=== PATIENT | male | born 1940 | race Caucasian/White ===

== ENCOUNTER 2020-06-11 00:19 | Emergency (ER) | payer MEDICARE, OTHER, SELFPAY ==
[2020-06-11 00:33] VITALS: BP 150/89; PULSE 48; RESP 18; TEMP 35.6; O2SAT 96; BMI 29.9
--- NOTE | 2020-06-11 00:46 | CTR_ITS ---
PROCEDURE INFORMATION: Exam: CT Abdomen And Pelvis With Contrast Exam date and time: 06/11/2020 1:03 AM Age: 80 years old Clinical indication: Abdominal pain; Flank; Right; Additional info: Abd pain TECHNIQUE: Imaging protocol: Computed tomography of the abdomen and pelvis with intravenous contrast. Radiation optimization: All CT scans at this facility use at least one of these dose optimization techniques: automated exposure control; mA and/or kV adjustment per patient size (includes targeted exams where dose is matched to clinical indication); or iterative reconstruction. Contrast material: VISI; Contrast volume: 95 ml; Contrast route: INTRAVENOUS (IV); COMPARISON: No relevant prior studies available. RADIATION DOSE METRICS: Total DLP (mGy-cm): 1449.46 FINDINGS: Liver: There is mild hypoattenuation of the hepatic parenchyma compatible with fatty infiltration. Gallbladder and bile ducts: Normal. No calcified stones. No ductal dilation. Pancreas: Normal. No ductal dilation. Spleen: Normal. No splenomegaly. Adrenals: Normal. No mass. Kidneys and ureters: There are bilateral benign appearing renal cysts, the largest is seen in the upper pole of the right kidney measuring 1.8 cm. Strandy opacities are seen in the right perinephric fascia the compatible with mild inflammatory changes. There is mild hydronephrosis seen within the right kidney and a partially obstructing 2.2 mm calculus is seen at the level of the right ureteropelvic junction. Stomach and bowel: Diverticula are seen on the descending and sigmoid colon. There are no inflammatory changes seen to suggest diverticulitis. Appendix: The appendix is visualized and is normal in configuration. Intraperitoneal space: Unremarkable. No free air. No significant fluid collection. Vasculature: Unremarkable. No abdominal aortic aneurysm. Lymph nodes: Unremarkable. No enlarged lymph nodes. Bladder: Unremarkable as visualized. Reproductive: The prostate gland is prominent measuring 4.7 x 5.7 x 5.8 cm. Bones/joints: Unremarkable. No acute fracture. Soft tissues: Unremarkable. CT/CT abdomen pelvis w con* [id number] IMPRESSION: 1. Partially obstructing 2.2 mm calculus at the level of the right ureteropelvic junction. 2. Diverticulosis of the descending and sigmoid colon 3. Bilateral benign renal cysts, the largest seen on the right upper pole measuring 1.8 cm. No further workup needed. COMMENTS: Consistent with the [employer]'s Incidental Findings Committee white paper (J Am Hebert Radiol 2018): Any incidental renal lesion less than 1 cm or classified as too small to characterize, or any incidental cystic renal lesion characterized as simple-appearing, is likely benign. No follow-up imaging is recommended for these lesions per consensus recommendations based on imaging criteria. Radiation Dose CTDIVOL = (mGy): DLP = 1449.46 (mGy-cm)
--- NOTE | 2020-06-11 00:47 | ED_ITS ---
HPI - Back Pain/Injury General: Chief Complaint: Back Pain/Injury Stated Complaint: lower back pain/vomiting Time Seen by Provider: 06/11/20 00:30 Source: patient Mode of arrival: ambulatory Limitations: no limitations History of Present Illness: HPI Narrative: 80-year-old male who states he started having severe right-sided flank pain and abdominal pain at 730. He states the pain is been steady. He has had nausea and vomiting due to the pain. Denies any fevers. He has no history of kidney stones. Denies any difficulty urinating. Associated symptoms: Reports abdominal pain, nausea and vomiting; Deny chills, dysuria or fever(s) Review of Systems Const: Denies: fever(s), chills, body aches or change in appetite Eyes: Denies: blurry vision or eye discomfort ENMT: Denies: throat pain or dental pain Card: Denies: chest pain Resp: Denies: dyspnea GI: Reports: abdominal pain, nausea and vomiting : Denies: dysuria Musc: Denies: neck pain or back pain Skin/Breast: Denies: rash Neuro: Denies: headache(s) Psych: Denies: depression Jimi/Lymph: Denies: easy bruising All/Imm: Denies: urticaria Physical Exam Const: COMMON NORMALS: no acute distress, patient oriented x3 and healthy appearing HENMT: COMMON NORMALS: normocephalic and atraumatic HEAD & SCALP: normocephalic and atraumatic Eye: COMMON NORMALS: Equal, round and reactive pupils present and EOMs intact bilaterally PUPIL: Yes Equal, round and reactive pupils present Neck/C-Spine: COMMON NORMALS: full ROM and supple Chest: COMMONS NORMALS: normal inspection of the chest and normal palpation of entire chest wall Resp: COMMON NORMALS: normal respiratory effort, No retractions, No use of accessory muscles and clear to auscultation bilaterally AUSCULTATION: clear to auscultation bilaterally Cardio: COMMON NORMALS: regular rate, regular rhythm and No murmurs present (Cardio) RATE: regular rate RHYTHM: regular rhythm GI: COMMON NORMALS: Normal to inspection, nondistended, normoactive bowel sounds present, Soft to palpation, non-tender and no masses PALPATION: Yes Soft to palpation Extremity: COMMON NORMALS: normal to inspection and full ROM Neuro: COMMON NORMALS: patient oriented x3, moves all extremities and no focal motor deficits Psych: COMMON NORMALS: mental status grossly normal, Normal thought process present and cooperative THOUGHT PROCESS: Normal thought process present Skin: COMMON NORMALS: no rashes or lesions noted and no wounds GENERAL SKIN EXAM: no rashes or lesions noted Course Vital Signs: Vital signs: Vital Signs Temperature 96.1 F L 06/11/20 00:33 Pulse Rate 48 L 06/11/20 00:33 Respiratory Rate 16 06/11/20 00:54 Blood Pressure 150/89 06/11/20 00:33 Pulse Oximetry 96 06/11/20 00:33 MDM - Back Pain/Injury MDM Narrative: Medical decision making narrative: Patient presents here with flank pain and is found to have a kidney stone. Stone is 2 mm and should be able to pass. We will place him on Flomax along with pain meds. He is stable for discharge and is to follow-up with urology. Patient has no signs of infection. He is to return if worsening. Lab Data: Labs: Lab Results 06/11/20 06/11/20 06/11/20 Range/Units 00:42 00:42 01:27 WBC 13.9 H (4.0-10.0) 10^3/ uL RBC 5.35 H (4.1-5.3) 10^6/u L Hgb 15.4 (11.7-16.6) g/dL Hct 47.0 (42.0-52.0) % MCV 87.9 (80-94) fL MCH 28.8 (28.0-34.0) pg MCHC 32.8 (30.0-36.0) g/dL RDW 13.1 (12.1-15.1) % Plt Count 264 (130-400) 10^3/c mm MPV 9.9 (7.4-10.4) fL Neut % (Auto) 87.1 % Lymph % (Auto) 6.5 % [place] % (Auto) 4.9 % Eos % (Auto) 0.2 % Baso % (Auto) 0.4 % Neut # (Auto) 12.10 H (1.8-7.7) 10^3/u L Lymph # (Auto) 0.9 (0.8-4.8) 10^3/u L [place] # (Auto) 0.7 (0.2-0.9) 10^3/u L Eos # (Auto) 0.0 (0.0-0.8) 10^3/u L Baso # (Auto) 0.1 (0.0-0.1) 10^3/u L Nucleated RBC % (a uto) 0 % Nucleated RBCs # 0.0 /100WBC Sodium 140 (136-145) mmol/L Potassium 4.1 (3.5-5.1) mmol/L Chloride 103 (98-107) mmol/L Carbon Dioxide 25 (22-29) mmol/L Anion Gap 16.1 (5-19) BUN 21 (8-23) mg/dL Creatinine 1.3 H (0.7-1.2) mg/dL GFR Calculation Not Reportable Glucose 220 H (65-115) mg/dL Calculated Osmolal ity 300 H (285-295) mOsm/k g Calcium 9.1 (8.5-10.5) mg/dL Total Bilirubin 0.7 (0.15-1.2) mg/dL AST 23 (0-40) U/L ALT 31 (0-41) U/L Alkaline Phosphata se 83 (40-130) IU/L Total Protein 7.7 (6.6-8.7) g/dL Albumin 4.4 (3.5-5.2) g/dL Globulin 3.3 (1.3-4.6) g/dL Lipase 46 (13-60) U/L Urine Color Yellow (Yellow) Urine Appearance Clear (CLEAR) Urine pH 5 (5-7) Ur Specific Gravit y 1.020 (1.005-1.030) Urine Protein Neg (Negative) Urine Glucose (UA) Norm (Normal) Urine Ketones 1+ H (Negative) Urine Blood 3+ H (Negative) Urine Nitrate Negative (Negative) Urine Bilirubin Neg (Negative) Urine Urobilinogen Norm (Negative) mg/dL Ur Leukocyte Tash ase Negative (Negative) Urine RBC 25-40 H (0-2) /hpf Urine WBC 0-4 H (0-5) /hpf Ur Squamous Epith Cells 0-4 H (0-5) /hpf Amorphous Sediment Not Reportable Urine Bacteria Trace (NONE) /hpf Urine Yeast 1+ H /hpf Imaging Data^: CT Abd/Pel: Radiologist's impression: [facility] [address] [place] [address] CT Scan Report Signed Patient: Aaron Negron Unit #: [id number] : 1940 Age/Sex: 80 / M ADM Date: 06/11/20 Loc: ER Room/Bed: Attending Dr: Ordering Provider/Ordering MD: Irina Holder MD Date of Service: 06/11/20 Procedure(s): CT abdomen pelvis w con* [id number] Accession Number(s): [id number] Report Number: [id number] PROCEDURE INFORMATION: Exam: CT Abdomen And Pelvis With Contrast Exam date and time: 06/11/2020 1:03 AM Age: 80 years old Clinical indication: Abdominal pain; Flank; Right; Additional info: Abd pain TECHNIQUE: Imaging protocol: Computed tomography of the abdomen and pelvis with intravenous contrast. Radiation optimization: All CT scans at this facility use at least one of these dose optimization techniques: automated exposure control; mA and/or kV adjustment per patient size (includes targeted exams where dose is matched to clinical indication); or iterative reconstruction. Contrast material: VISI; Contrast volume: 95 ml; Contrast route: INTRAVENOUS (IV); COMPARISON: No relevant prior studies available. RADIATION DOSE METRICS: Total DLP (mGy-cm): 1449.46 FINDINGS: Liver: There is mild hypoattenuation of the hepatic parenchyma compatible with fatty infiltration. Gallbladder and bile ducts: Normal. No calcified stones. No ductal dilation. Pancreas: Normal. No ductal dilation. Spleen: Normal. No splenomegaly. Adrenals: Normal. No mass. Kidneys and ureters: There are bilateral benign appearing renal cysts, the largest is seen in the upper pole of the right kidney measuring 1.8 cm. Strandy opacities are seen in the right perinephric fascia the compatible with mild inflammatory changes. There is mild hydronephrosis seen within the right kidney and a partially obstructing 2.2 mm calculus is seen at the level of the right ureteropelvic junction. Stomach and bowel: Diverticula are seen on the descending and sigmoid colon. There are no inflammatory changes seen to suggest diverticulitis. Appendix: The appendix is visualized and is normal in configuration. Intraperitoneal space: Unremarkable. No free air. No significant fluid collection. Vasculature: Unremarkable. No abdominal aortic aneurysm. Lymph nodes: Unremarkable. No enlarged lymph nodes. Bladder: Unremarkable as visualized. Reproductive: The prostate gland is prominent measuring 4.7 x 5.7 x 5.8 cm. Bones/joints: Unremarkable. No acute fracture. Soft tissues: Unremarkable. CT/CT abdomen pelvis w con* [id number] IMPRESSION: 1. Partially obstructing 2.2 mm calculus at the level of the right ureteropelvic junction. 2. Diverticulosis of the descending and sigmoid colon 3. Bilateral benign renal cysts, the largest seen on the right upper pole measuring 1.8 cm. No further workup needed. Discharge Plan Discharge Patient Disposition: Home Clinical Impression: Kidney stone on right side Condition: Stable Prescriptions: [place] 5-325 mg tablet 1 tab PO Q6H PRN (Reason: pain) Qty: 14 RF: 0 ondansetron 4 mg tablet,disintegrating 4 mg PO Q6H PRN (Reason: nausea and vomiting) Qty: 14 RF: 0 Flomax 0.4 mg capsule 0.4 mg PO DAILY Qty: 7 RF: 0 Discharge Orders: Discharge Order (Routine); Ordered 06/11/20 Ordered By: Irina Holder Referrals: Angel Howard MD [Physician] - 1-3 days Florian Sarmiento MD [Primary Care Provider] - Discharge Diet: Advance as tolerated Discharge Activity: Resume usual activity Patient Instructions: Kidney Stones (ED) Coding Level of Care Code ED French Drawer for Chg Fwd Exam Comprehensive
[2020-06-11 00:54] VITALS: RESP 16
[2020-06-11] MEDS: morphine 4 mg/mL SDV 1 mL IVP (00:54)
[2020-06-11] MEDS: ondansetron 2 mg/ML SDV 2 mL 4 MG IVP (00:54)
[2020-06-11] MEDS: sodium chloride 0.9% 1,000 ML 999 ML IV (00:55)
[2020-06-11 00:58] LABS: Basophils # 0.1 10^3/uL (0.0-0.1); Basophils % 0.4 %; Eosinophils % 0.2 %; Hemoglobin 15.4 g/dL (11.7-16.6); Lymphocytes # 0.9 10^3/uL (0.8-4.8); Lymphocytes % 6.5 %; Mean Corpuscular HGB Conc 32.8 g/dL (30.0-36.0); Mean Corpuscular Hemoglobin 28.8 pg (28.0-34.0); Mean Corpuscular Volume 87.9 fL (80-94); Mean Platelet Volume 9.9 fL (7.4-10.4); Monocytes # 0.7 10^3/uL (0.2-0.9); Monocytes % 4.9 %; Neutrophils % 87.1 %; Nucleated Red Blood Cells % 0 %; Platelet Count 264 10^3/cmm (130-400); Red Blood Count 5.35 10^6/uL (4.1-5.3); Red Cell Distribution Width 13.1 % (12.1-15.1); White Blood Count 13.9 10^3/uL (4.0-10.0)
[2020-06-11 01:26] LABS: Alanine Aminotransferase 31 U/L (0-41); Albumin Level 4.4 g/dL (3.5-5.2); Alkaline Phosphatase 83 IU/L (40-130); Anion Gap 16.1 (5-19); Aspartate Amino Transferase 23 U/L (0-40); Blood Urea Nitrogen 21 mg/dL (8-23); Calcium 9.1 mg/dL (8.5-10.5); Carbon Dioxide 25 mmol/L (22-29); Chloride 103 mmol/L (98-107); Globulin 3.3 g/dL (1.3-4.6); Glucose 220 mg/dL (65-115); Lipase 46 U/L (13-60); Osmolality Calculated 300 mOsm/kg (285-295); Potassium 4.1 mmol/L (3.5-5.1); Sodium 140 mmol/L (136-145); Total Bilirubin 0.7 mg/dL (0.15-1.2); Total Protein 7.7 g/dL (6.6-8.7)
[2020-06-11] MEDS: iodixanol 320 mg/mL 100mL Btl IV (01:59)
[2020-06-11 02:00] LABS: Add Urine Microscopic? YES; Bilirubin Urine Neg (Negative); Blood Urine 3+ (Negative); Glucose Urine UA Norm (Normal); Ketones Urine 1+ (Negative); Leukocyte Esterase Urine Negative (Negative); Nitrate Urine Negative (Negative); Protein Urine Neg (Negative); Urine Appearance Clear (CLEAR); Urine Color Yellow (Yellow); Urobilinogen Urine Norm (Negative); pH Urine 5 (5-7)
[2020-06-11 02:13] LABS: Add Urine Culture? Yes; Bacteria Urine TRACE /hpf; RBC Urine 25-40 /hpf (0-2); Squamous Epithelial Cell Urine 0-4 /hpf (0-5); WBC Urine 0-4 /hpf (0-5)
[2020-06-11] MEDS: ketorolac 30 mg/mL INJ 10 MG IVP (02:20)
[2020-06-11] MEDS: HYDROcodone-acetaminophen 5-325 mg Tablet 1 TAB PO (02:32)
[2020-06-11 02:43] VITALS: BP 123/76; PULSE 56; RESP 16; O2SAT 98
--- NOTE | 2020-06-11 14:38 | DCPLANNER ---
youth manager had message to schedule a follow up appointment for patient with Dr. Howard. youth manager called the office of Dr. Howard, spoke with Yesica, gave clinic patients information. youth manager was told that patients information would be printed and reviewed. Clinic will call patient with appointment information.
--- NOTE | 2020-06-14 07:41 | DCPLANNER ---
Patient had an appointment scheduled for 06.12.[address] Howard - patient did attend appointment.
== END 2020-06-11 02:45 | disposition home or self-care (01) ==
PROVIDERS: Emergency Provider Emergency Medicine; PCP Family Medicine
DX: N20.0 Calculus of kidney (principal)
CPT/HCPCS: 12345; 74177; 80053; 81001; 83690; 85025; 87086; 96360; 96375; 99283; 99284; J1885; J2270; J2405; J7030; Q9967

== ENCOUNTER 2020-06-12 12:51 | Outpatient (CLI) | payer MEDICARE, OTHER, SELFPAY ==
--- NOTE | 2020-06-12 12:45 | XRR_ITS ---
PROCEDURE INFORMATION: Exam: XR Abdomen, 1 View Exam date and time: 06/12/2020 1:13 PM Age: 80 years old Clinical indication: Condition or disease; Kidney or ureter condition; Calculus (stone) in kidney; Additional info: Kidney stone TECHNIQUE: Imaging protocol: XR of the abdomen. Views: Frontal supine view of the abdomen. 1 View. COMPARISON: CT abdomen pelvis w con* [id number] 06/11/2020 1:49 AM FINDINGS: Gastrointestinal tract: No dilated gas-filled loops of bowel. Organs: There is a calcific density measuring approximately 3 mm in size, not accounting for magnification, projecting between the right L3 and L4 transverse processes. This correlates generally with where the previously identified obstructing ureteral calculus was located on the comparison CT ABDOMEN/PELVIS. Bones/joints: Multilevel degenerative changes in the lumbar spine. XR/XR KUB [id number] IMPRESSION: The previously demonstrated right ureteral calculus may still be present, though noncontrast helical CT ABDOMEN/PELVIS would be more definitive.
== END 2020-06-12 12:52 | disposition home or self-care (01) ==
LOC: RAD 12:57
PROVIDERS: PCP Family Medicine; Visit Provider Urology
DX: N20.0 Calculus of kidney (principal)
CPT/HCPCS: 74018; 81001

== ENCOUNTER 2020-07-04 14:07 | Outpatient (CLI) | payer MEDICARE, OTHER, SELFPAY ==
--- NOTE | 2020-07-04 15:15 | XRR_ITS ---
PROCEDURE INFORMATION: Exam: XR Abdomen, 1 View Exam date and time: 07/04/2020 2:26 PM Age: 80 years old Clinical indication: Condition or disease; Kidney or ureter condition; Calculus (stone) in kidney; Additional info: Stones TECHNIQUE: Imaging protocol: XR of the abdomen. Views: Frontal supine view of the abdomen. 1 View. COMPARISON: CR XR KUB [id number] 06/12/2020 1:10 PM FINDINGS: Gastrointestinal tract: There is a small amount of stool in the colon. Vasculature: Vascular calcifications are noted. Bones/joints: The previously visualized 3 mm calculus inferior to the right transverse process of L3 on the prior exam is now projected in the pelvis at the expected location of the right ureteral pelvic junction just medial to a phlebolith. Other findings: No nephrolithiasis. XR/XR KUB [id number] IMPRESSION: No acute findings. Probable 3 mm calculus right ureter is now projected at the right ureteral vesicle junction.
== END 2020-07-04 14:08 | disposition home or self-care (01) ==
LOC: RAD 14:14
PROVIDERS: PCP Family Medicine; Visit Provider Urology
DX: N20.0 Calculus of kidney (principal)
CPT/HCPCS: 74018; 81001

== ENCOUNTER 2020-07-24 13:29 | Outpatient (CLI) | payer MEDICARE, OTHER, SELFPAY ==
--- NOTE | 2020-07-24 13:45 | XR_ITS ---
WS: [id number] KUB, 07/24/2020 Clinical Data: URETERAL STONE Comparison: KUB, 07/04/2020. Findings: There are phleboliths in the true pelvis. No definite distal ureteral calculus is seen. No definite b ladder calculus is noted. Fecal gas obscures detail over both kidneys. XR/XR KUB [id number] Impression: Negative for definite renal or ureteral calculi.
== END 2020-07-24 13:30 | disposition home or self-care (01) ==
LOC: RAD 13:31
PROVIDERS: PCP Family Medicine; Visit Provider Urology
DX: N20.1 Calculus of ureter (principal)
CPT/HCPCS: 74018; 81003

== ENCOUNTER 2020-08-09 08:33 | Outpatient (CLI) | payer MEDICARE, OTHER, SELFPAY ==
--- NOTE | 2020-08-09 10:00 | XR_ITS ---
WS: [id number] Exam: XR KUB [id number] Date/Time of Exam: 08/09/2020 8:40 AM Reason For Exam: URETERAL STONE Comparison 07/24/2020. No bowel obstruction or free air. No abnormal calcifications in the region of the kidneys. Nonspecifi c pelvic calcifications are noted. Visualized organ margins are intact. Moderate amount of stool in t he colon. Degenerative changes of the lumbar spine and hips. XR/XR KUB [id number] IMPRESSION: 1. No acute finding. 2. No abnormal calcifications noted in the region of the kidneys.
== END 2020-08-09 08:34 | disposition home or self-care (01) ==
LOC: RAD 08:37
PROVIDERS: PCP Family Medicine; Visit Provider Urology
DX: N20.1 Calculus of ureter (principal)
CPT/HCPCS: 74018; 81003; 87635

== ENCOUNTER 2020-08-13 11:24 | Day surgery (SDC) | payer MEDICARE, OTHER, SELFPAY ==
[2020-08-10 12:33] VITALS: BMI 29.0
[2020-08-13] MEDS: sodium chloride 0.9% 1,000 ML 30 ML IV (12:08)
--- NOTE | 2020-08-13 12:10 | XR_ITS ---
WS: [id number] XR KUB [id number] REASON FOR EXAM: ureteral stone FINDINGS: Previous CT scan 06/11/2020 demonstrated a small calculus in the right ureter at the L3-L4 level. On t he examination of 07/24/2020 the presumed right ureteral calculus is identified in the right lower pel vis. On today's examination it is located more medially and could lie in the distal most right ureter al vesicle junction or within the bladder itself. Bowel gas pattern is unremarkable. No free air or retroperitoneal air. There are vascular calcifications in the pelvis. No mass is identified. XR/XR KUB [id number] IMPRESSION: Progressive distal migration of right ureteral calculus which now lies at the l evel of the right ureterovesical junction as above.
[2020-08-13 12:11] VITALS: BP 134/84; PULSE 68; RESP 18; TEMP 37.2; O2SAT 95
--- NOTE | 2020-08-13 12:31 | P.ANESASSM_ITS ---
Pre-Anesthetic Assessment Pre-Anesthetic Assessment: Height/Weight: Height 1.8 m Weight 94.347 kg Temp Pulse Resp BP Pulse Ox 98.9 F 68 18 134/84 95 08/13/20 12:11 08/13/20 12:11 08/13/20 12:11 08/13/20 12:11 08/13/20 12:11 Preop Diagnosis: Refractory right distal ureteral stone Proposed Procedure: Operation Date: 08/13/20 14:00 Proposed Procedures p Cystoscopy 84544 [id number] 45097 N20.1(Not Applicable) - Angel Howard MD s Retrograde Pyelogram(Right) - Angel Howard MD s ESWL(Not Applicable) - Angel Howard MD Familial anesthetic complications: none Was Beta Sveta taken within 24 h ours: N/A Last intake: Intake Last Liquid Date 08/12/20 Last Liquid Time 07:30 Last Solid Date 08/12/20 Last Solid Time 18:00 Social: Social History: No alcohol and No tobacco Exam: Pre-Anes Outpt Exam: alert, oriented x 3, clear to auscultation bilaterally and regular rate & rhythm Airway: Cervical ROM: WNL MP: 3 Dentition: Full CV/HEM: CV/HEM: HTN Anesthetic Plan: ASA status: 2 Anesthesia: General Risk of > 500 ml blood loss (7ml/kg in children): No Meds/Allergies Current Medications: Current Medications Generic Name Dose Route Start Last Admin Trade Name Freq PRN Reason Stop Dose Admin Sodium Chloride 1,000 mls @ 30 ml s/hr 08/13/20 11:45 08/13/20 12:08 Sodium Chloride 0.9% IV 08/14/20 11:44 30 mls/hr .Q24H PORSHA Administration PFSH Anesthesia PFSH: Medical History Right ureteral stone Family History Mother Cancer BREAST CANCER Brother Diabetes Social History Smoking and tobacco status: never smoked Alcohol intake: never Adopted: No Caregiver/support person: No Lives independently: No Household members: spouse Marital status: Current occupation: SELF EMPLOYED Data Anesthesia Cardiac Studies: No Data to Display
--- NOTE | 2020-08-13 14:41 | P.HPUD_ITS ---
Surgery/Procedure H&P Update DATE OF PROCEDURE: August 13, 2020 DATE H&P PERFORMED: 08/09/20 H&P UPDATE INFORMATION: I have reviewed H&P completed within last 30 days, I have examined patient prior to procedure, No changes to prior documentation and H&P is in [facility] EMR on date indicated CHANGES TO PREVIOUS DOCUMENTATION: The KUB did not clearly show the stone seen previously. The patient states that he has been diligent in straining his urine and has not seen anything pass. We will plan for cystoscopy and retrograde pyelogram prior to initiating ESWL. Can cancel ESWL if the stone is confirmed to be passed. Proceed with scheduled procedure if stone is readily identified PREOP DIAGNOSIS: Refractory right distal ureteral stone PLANNED PROCEDURE: Operation Date: 08/13/20 14:00 Proposed Procedures p Cystoscopy [id number] 53854 N20.1(Not Applicable) - Angel Howard MD s Retrograde Pyelogram(Right) - Angel Howard MD s ESWL(Not Applicable) - Angel Howard MD
--- NOTE | 2020-08-13 14:43 | P.OP_ITS ---
Operative Report Date of procedure: August 13, 2020 Pre-op Diagnosis: Refractory right distal ureteral stone Post-op Diagnosis: Stone was in the bladder. Fragmented with ESWL and fragments removed Procedure Done: 1. Cystoscopy, extracorporeal shockwave lithotripsy bladder stone Specimens removed/disposition: Stone fragments Pathology: Stone fragments Surgeon: Lee Anesthesia: General Estimated blood loss: Minimal Urine output: Not measured Complications: None Findings: Stone had passed into the bladder and was fragmented with ESWL and a small pieces that were easily flushed through the scope. Condition: stable Disposition: PACU Brief History: Aaron is a very pleasant 80-year-old white male with a 2-month history of a refractory right ureteral calculus that ultimately led to the decision to definitively treat due to his failure to pass it. Preoperative KUB was somewhat equivocal and we decided to proceed with cystoscopy retrograde poss ible ureteroscopy pending intraoperative findings. Procedure: After routine preoperative evaluation examination and obtaining of informed consent he was taken to the operating suite on 08/13/2020 where general anesthesia was administered without difficulty after appropriate timeout was performed, SCDs confirmed to be functioning, preoperative antibiotics administered, beta-rah protocol confirmed. Prepped and draped in usual sterile fashion in dorsal lithotomy position paying careful attention to avoiding pressure points. 21 Palestinian cystoscope with 30 degree lens was introduced into the urethral meatus and advanced into the bladder under videoscopy. Bladder was systematically examined. The right ureteral orifice appeared to be edematous. The stone was identified in a cellule and was treated with ESWL and visualized during the treatment. Once the fragmentation was adequate the pieces were flushed through the scope and as well removed with grasping forceps. On final inspection there was no residual pieces. Bladder was drained and the procedure completed. He tolerated procedure well without complications and was awakened in the operating room and returned to the recovery in stable condition. PLANS: 1. Discharge from outpatient surgery 2. Follow-up in 6 months with KUB.
[2020-08-13] MEDS: levofloxacin-dextrose 5 % 500 MG/100 ML PREMIX 100 MG IV (14:55)
[2020-08-13 15:35] VITALS: BP 120/79; PULSE 77; RESP 16; TEMP 37.1; O2SAT 98
[2020-08-13 15:40] VITALS: BP 107/81; PULSE 68; RESP 16; O2SAT 99
[2020-08-13 15:45] VITALS: BP 119/83; PULSE 70; RESP 18; TEMP 36.9; O2SAT 97
--- NOTE | 2020-08-13 15:46 | SUR.PHASEI ---
PT AWAKES EASILY ON RA TRIAL, PT VERBALLY DENIES PAIN AND NAUSEA, PT ASKS (DID HE BREAK UP THE STONE?) pt informed all went well, vss sats 93-95% on ra.
--- NOTE | 2020-08-13 16:00 | ANE.PACU2 ---
Inpatient post-anesthesia follow up: Airway intact: Yes Vital signs: Temperature 98.4 F Pulse Rate 78 Respiratory Rate 18 Blood Pressure 120/78 Pulse Oximetry 92 Oxygen Delivery Me thod Room Air Oxygen Flow Rate 8 Fraction of Inspir ed Oxygen Hydration adequate: Yes Nausea and vomiting: No Pain level: 2 Mental status: Baseline
[2020-08-13 16:03] VITALS: BP 98/70; PULSE 54; RESP 18; TEMP 36.9; O2SAT 92
[2020-08-13 17:51] VITALS: BP 120/78; PULSE 78; RESP 18
[2020-08-21 04:00] LABS: Stone Source BLADDER STONE
== END 2020-08-13 15:05 | disposition home or self-care (01) ==
PROVIDERS: PCP Family Medicine; Visit Provider Urology
PROC: 0TJB8ZZ Inspection of Bladder, Via Natural or Artificial Opening Endoscopic (ICD-10-PCS; CPT 52000; principal; 2020-08-13 14:25)
PROC: (CPT 74420; 2020-08-13 14:25)
PROC: (CPT 50590; 2020-08-13 14:25)
DX: N20.1 Calculus of ureter (principal); I10 Essential (primary) hypertension; Z79.82 Long term (current) use of aspirin
CPT/HCPCS: 50590; 12345; 74018; 82365; 88300; J1956; J2250; J2405; J2704; J3010; J7030

== ENCOUNTER 2021-02-11 08:29 | Outpatient (CLI) | payer MEDICARE, SELFPAY ==
--- NOTE | 2021-02-11 09:15 | XR_ITS ---
WS: [id number] Exam: XR KUB [id number] Date/Time of Exam: 02/11/2021 9:15 AM Reason For Exam: N20.1 - Calculus of ureter Comparison 08/13/2020. No bowel obstruction or free air. No calcifications seen in the region of the kidneys. Organ margins are intact. Bony structures are unremarkable. Moderate amount retained stool in the colon. XR/XR KUB [id number] IMPRESSION: 1. No acute abdominal finding. 2. No calcifications noted in the region of the kidneys.
== END 2021-02-11 08:30 | disposition home or self-care (01) ==
PROVIDERS: PCP Family Medicine; Visit Provider Urology
DX: N20.1 Calculus of ureter (principal)
CPT/HCPCS: 74018; 81003

== ENCOUNTER → 2022-03-18 07:47 | Outpatient (BNVA) | payer MEDICARE, SELFPAY | PROVIDERS: PCP Family Medicine; Visit Provider Podiatrist Foot & Ankle Surgery | DX: L60.3 Nail dystrophy (principal); I73.9 Peripheral vascular disease, unspecified; M79.671 Pain in right foot; M79.672 Pain in left foot | CPT/HCPCS: 11721 ==

== ENCOUNTER 2022-03-20 12:30 | Outpatient (CLI) | payer MEDICARE, SELFPAY ==
--- NOTE | 2022-03-20 12:45 | XR_ITS ---
WS: [id number] XR KUB [id number] REASON FOR EXAM: Urolithiasis FINDINGS: No urinary tract calculi are identified. Bowel gas pattern is unremarkable. No free air or retroperitoneal air. No mass is identified. Mild to moderate degenerative spondylosis in the lumbar spine. Bony pelvis is intact. XR/XR KUB [id number] IMPRESSION: No urinary tract calculi identified. No acute abnormality.
== END 2022-03-20 12:31 | disposition home or self-care (01) ==
LOC: RAD 12:31
PROVIDERS: PCP Family Medicine; Visit Provider Urology
DX: N20.9 Urinary calculus, unspecified (principal); N40.1 Benign prostatic hyperplasia with lower urinary tract symptoms; N52.1 Erectile dysfunction due to diseases classified elsewhere
CPT/HCPCS: 74018; 81003; 99203; 99213

== ENCOUNTER → 2022-07-22 10:45 | Outpatient (BNVA) | payer MEDICARE, SELFPAY | PROVIDERS: PCP Family Medicine; Visit Provider Podiatrist Foot & Ankle Surgery | DX: I73.9 Peripheral vascular disease, unspecified (principal); L60.3 Nail dystrophy | CPT/HCPCS: 11721 ==

== ENCOUNTER → 2022-11-20 08:54 | Outpatient (BNVA) | payer MEDICARE, SELFPAY | PROVIDERS: PCP Family Medicine; Visit Provider Podiatrist Foot & Ankle Surgery | DX: I73.9 Peripheral vascular disease, unspecified (principal); L60.3 Nail dystrophy | CPT/HCPCS: 11721 ==

== ENCOUNTER → 2023-03-16 07:32 | Outpatient (BNVA) | payer MEDICARE, SELFPAY | PROVIDERS: PCP Family Medicine; Visit Provider Podiatrist Foot & Ankle Surgery | DX: I73.9 Peripheral vascular disease, unspecified (principal); L60.8 Other nail disorders; L60.3 Nail dystrophy | CPT/HCPCS: 11721 ==

== ENCOUNTER 2023-03-17 07:33 | Outpatient (CLI) | payer MEDICARE, SELFPAY ==
--- NOTE | 2023-03-17 07:45 | XR_ITS ---
WS: [id number] Exam: XR KUB [id number] Date/Time of Exam: 03/17/2023 7:47 AM Reason For Exam: STONES Comparison 03/20/2022. No bowel obstruction or free air. No calcifications noted in the region of the kidneys. No sign of or christine enlargement. Degenerative changes of the L-spine, hips and SI joints. XR/XR KUB [id number] IMPRESSION: 1. No acute process identified.
== END 2023-03-17 07:34 | disposition home or self-care (01) ==
LOC: RAD 07:40
PROVIDERS: PCP Family Medicine; Visit Provider Urology
DX: N20.9 Urinary calculus, unspecified (principal)
CPT/HCPCS: 51741; 51798; 74018; 81003; 99213

== ENCOUNTER → 2023-06-15 07:26 | Outpatient (BNVA) | payer MEDICARE, SELFPAY | PROVIDERS: PCP Family Medicine; Visit Provider Podiatrist Foot & Ankle Surgery | DX: L60.8 Other nail disorders (principal); I73.9 Peripheral vascular disease, unspecified; L60.3 Nail dystrophy | CPT/HCPCS: 11721 ==

== ENCOUNTER → 2023-07-01 07:56 | Outpatient (BNVA) | payer MEDICARE, SELFPAY | PROVIDERS: PCP Family Medicine; Visit Provider Dermatology | DX: C44.629 Squamous cell carcinoma of skin of left upper limb, including shoulder (principal); L57.0 Actinic keratosis; L81.4 Other melanin hyperpigmentation; L57.8 Other skin changes due to chronic exposure to nonionizing radiation | CPT/HCPCS: 13132; 17004; 17311; 99203 ==

== ENCOUNTER → 2023-07-15 08:32 | Outpatient (BNVA) | payer MEDICARE, SELFPAY | PROVIDERS: PCP Family Medicine; Visit Provider Dermatology | DX: Z48.02 Encounter for removal of sutures (principal) | CPT/HCPCS: 99024; 99212 ==

== ENCOUNTER → 2023-09-22 07:36 | Outpatient (BNVA) | payer MEDICARE, SELFPAY | PROVIDERS: PCP Family Medicine; Visit Provider Podiatrist Foot & Ankle Surgery | DX: I73.9 Peripheral vascular disease, unspecified (principal); L60.3 Nail dystrophy | CPT/HCPCS: 11721 ==

== ENCOUNTER → 2023-12-22 07:34 | Outpatient (BNVA) | payer MEDICARE, SELFPAY | PROVIDERS: PCP Family Medicine; Visit Provider Podiatrist Foot & Ankle Surgery | DX: I73.9 Peripheral vascular disease, unspecified (principal); L60.3 Nail dystrophy | CPT/HCPCS: 11721 ==

== ENCOUNTER → 2024-03-01 15:05 | Outpatient (BNVA) | payer MEDICARE, SELFPAY | PROVIDERS: PCP Family Medicine; Visit Provider Dermatology | DX: D48.5 Neoplasm of uncertain behavior of skin (principal); L57.0 Actinic keratosis; L57.8 Other skin changes due to chronic exposure to nonionizing radiation; L82.1 Other seborrheic keratosis; Z85.828 Personal history of other malignant neoplasm of skin | CPT/HCPCS: 11102; 17004; 99213 ==

== ENCOUNTER → 2024-03-22 07:34 | Outpatient (BNVA) | payer MEDICARE, SELFPAY | PROVIDERS: PCP Family Medicine; Visit Provider Podiatrist Foot & Ankle Surgery | DX: I73.9 Peripheral vascular disease, unspecified (principal); L60.3 Nail dystrophy | CPT/HCPCS: 11721; 99212 ==

== ENCOUNTER 2024-04-12 12:33 | Outpatient (CLI) | payer MEDICARE, SELFPAY ==
--- NOTE | 2024-04-12 13:15 | USCV_ITS ---
Aaron Negron Age: 83 Gender: M : 1940 Exam Date: 04/12/2024 12:55 Ordering Phys: Indira Mckee MD ([email or web address]) Technologist: SKY [place] [facility] [place]: SOB/BRADYCARDIA BP: 130 / 84 HR: 67 Rhythm: Sinus Technical Quality: Adequate MEASUREMENTS (Male / Female) Normal Values 2D ECHO LV Diastolic Diameter PLAX 3.9 cm 4.2 - 5.9 / 3.9 - 5.3 cm IVS Diastolic Thickness 1.1 cm 0.6 - 1.0 / 0.6 - 0.9 cm IVS Systolic Thickness 1.6 cm LVPW Diastolic Thickness 2.0 cm 0.6 - 1.0 / 0.6 - 0.9 cm LVPW Systolic Thickness 2.2 cm LVOT Diameter 2.0 cm LV Ejection Fraction 2D Teich 41.2 % LV Ejection Fraction MOD 4C 42.6 % LV Ejection Fraction MOD 2C 56.5 % LV Ejection Fraction 2C AL 57.8 % LA Diameter 3.9 cm RA Systolic Volume 4C AL 17.7 ml RA Systolic Volume 4C MOD 16.5 ml LA Sys Volume AL 50.3 cm cubed LA Sys Volume Index AL 23.0 cm cubed/m squared Aorta at Sinotubular Diameter 2.8 cm IVC Diameter 2.1 cm M-MODE LA Ao Ratio MM 0.9 AV Cusp Separation MM 2.0 cm DOPPLER AV Peak Velocity 133.0 cm/s LVOT Peak Velocity 105.0 cm/s AV Area Cont Eq vti 2.4 cm squared AV Area Cont Eq pk 2.5 cm squared MV Peak Velocity 131.0 cm/s MV Area PHT 2.5 cm squared Mitral E to A Ratio 0.4 TR Peak Velocity 156.0 cm/s TR Peak Gradient 9.7 mmHg TR Mean Velocity 142.0 cm/s TR Mean Gradient 8.3 mmHg TR Velocity Time Integral 43.5 cm TV Peak E Velocity 43.0 cm/s Right Atrial Pressure 3.0 mmHg Pulmonary Artery Systolic Pressu 12.7 mmHg RV Ejection Time 0.4 s FINDINGS Left Ventricle Mild diffuse hypokinesia of the left ventricular ejection fraction of 43%. Grade I/IV diastolic dysfunction (abnormal relaxation filling pattern), normal to mildly elevated filling pressures. Right Ventricle The right ventricle is normal in size and function. Right Atrium The right atrium is normal in size. Left Atrium The left atrium is normal in size. Mitral Valve Mild mitral valve regurgitation. Mild mitral annular calcification. Aortic Valve Thickened aortic valve. Tricuspid Valve No gross abnormalities noted Pulmonic Valve Pulmonic valve not well visualized. Pericardium Normal pericardium without effusion. Aorta Normal ascending aorta dimension. IVC Inferior vena cava not visualized. CONCLUSIONS Mild diffuse hypokinesia of the left ventricular ejection fraction of 43%. Grade I/IV diastolic dysfunction (abnormal relaxation filling pattern), normal to mildly elevated filling pressures. Mild mitral valve regurgitation. Mild mitral annular calcification. Thickened aortic valve. There is no pericardial effusion. There are no intracardiac masses. No similar previous studies are available for comparison Dr Indira Mckee MD [facility] (Electronically Signed) Final Date: 15 April 2024 18:46 S
== END 2024-04-12 12:34 | disposition home or self-care (01) ==
LOC: RAD 12:33
PROVIDERS: PCP Family Medicine; Visit Provider Internal Medicine Cardiovascular Disease
DX: R06.09 Other forms of dyspnea (principal); I34.0 Nonrheumatic mitral (valve) insufficiency
CPT/HCPCS: 93005; 93306; 99204

== ENCOUNTER → 2024-05-09 09:31 | Outpatient (BNVA) | payer MEDICARE, SELFPAY | PROVIDERS: PCP Family Medicine; Visit Provider Internal Medicine Cardiovascular Disease | DX: R06.02 Shortness of breath (principal); R53.1 Weakness; I49.9 Cardiac arrhythmia, unspecified; Z79.01 Long term (current) use of anticoagulants; N18.9 Chronic kidney disease, unspecified; I42.9 Cardiomyopathy, unspecified; I10 Essential (primary) hypertension | CPT/HCPCS: 36415; 80053; 83880; 84443; 85025; 99215 ==

== ENCOUNTER 2024-05-12 07:59 | Outpatient (CLI) | payer MEDICARE, SELFPAY ==
--- NOTE | 2024-05-12 08:13 | NMCV_ITS ---
NM erickson perf SPECT r/s* [id number] Aaron Negron Age: 84 Gender: M : 1940 Exam Date: 05/12/2024 08:13 Ordering Phys: Indira Mckee MD ([email or web address]) Technologist: NATIVIDAD De León Exam Location: [facility] Indications: Atypical chest pain STRESS TEST [facility] IMAGE PROTOCOL Rest/Stress 1 Lexiscan Day Radiopharmaceutical Dose (mCi) Administration Site Administered by Rest: Tc-99m 10.6 IV NATIVIDAD De León Sestamibi Stress:Tc-99m 32.6 IV NATIVIDAD De León Sestamibi Rest: 12-May-2024 60 Discovery 630 Stress: 12-May-2024 30 Discovery 630 0.4mg Lexiscan. Supine position only as patient was unable to lay prone. SPECT RESULTS Technical Quality: Good Raw Data Analysis: Normal Image Corrections: No attenuation or motion correction applied Summed Stress Score: 3 Summed Rest Score: 4 Summed Difference Score: 0 PERFUSION FINDINGS Small area of minimal to moderately decreased tracer uptake involving the apical inferior and LV apex. No reversibility was noted in this region FUNCTIONAL RESULTS (calculated via Gated SPECT) Stress Image LV EF (%): 58 Stress EDV (mL):123 TID: 1.09 Stress ESV (mL):52 FUNCTIONAL FINDINGS: Segmental wall motion analysis revealing no gross wall motion abnormalities IMPRESSIONS 1. Myocardial perfusion imaging revealing small area of persistent decreased tracer uptake involving the apical inferior and LV apex suggesting myocardial scarring versus ulceration artifact 2. Normal LV ejection fraction of 58%. 3. LV wall motion analysis revealing no gross wall motion abnormalities. 4. Normal LV volume Low probability for coronary ischemia, based on the above findings. No similar previous studies are available for comparison Dr Indira Mckee MD [facility] (Electronically Signed) Final Date: 12 May 2024 13:33 S
--- NOTE | 2024-05-12 08:13 | ECG_ITS ---
[facility] Test Date: 2024-05-12 Pat Name: Aaron Negron Department: Room: Gender: Male [employer] Superintendent: : 1940 Requested By: Indira Mckee Order Number: [id number] Myra MD: Indira Mckee M.D. Interpretive Statements NAME OF STUDY: LEXISCAN SESTAMIBI STRESS TEST INDICATION: Shortness of Breath on exertion, PROCEDURE: At the baseline, the EKG revealed sinus bradycardia with a rate of 52 bpm. Poor R wave progression. Some nonspecific T wave changes in the high lateral leads. The baseline heart was 50 to bpm with a blood pressue of 144/85 mm of Hg Lexiscan was infused over a period of 20 seconds. A total of 0.4 milligrams of Lexiscan was infused. The stress phase was continued for a total of 5 minutes. Heart rate at the end of the stress phase was 63 bpm with a blood pressure 135/80 mm of Hg. The EKG at the peak infusion revealed no significant changes. Occasional PVCs were noted on the monitor Sestamibi was injected 20 seconds after the Lexiscan infusion. Heart rate at the end of the recovery phase was 66 bpm with a blood pressure of 129/82 mm of Hg. CONCLUSION: 1. No significant EKG changes with the LexiScan infusion 2. No LexiScan induced chest pain or cardiac arrhythmia 3. Normal blood pressure and heart rate response 4. Sestamibi/sestamibi perfusion scan pending; see separate report. Electronically Signed On 05-13-2024 8:59:25 CDT by Indira Mckee M.D. [email or web address]
[2024-05-12 08:14] VITALS: BMI 28.8
[2024-05-12] MEDS: regadenoson 0.4 Mg/5 ml Syringe IVP (10:08)
[2024-05-12 10:24] VITALS: BP 121/77; PULSE 67
== END 2024-05-12 08:00 | disposition home or self-care (01) ==
PROVIDERS: PCP Family Medicine; Visit Provider Internal Medicine Cardiovascular Disease
DX: R06.02 Shortness of breath (principal); R00.1 Bradycardia, unspecified; R94.39 Abnormal result of other cardiovascular function study
CPT/HCPCS: 36415; 78452; 93017; 96374; A9500; J2785

== ENCOUNTER → 2024-06-22 12:10 | Outpatient (BNVA) | payer MEDICARE, SELFPAY | PROVIDERS: PCP Family Medicine; Visit Provider Podiatrist Foot & Ankle Surgery | DX: I73.9 Peripheral vascular disease, unspecified (principal); L60.3 Nail dystrophy | CPT/HCPCS: 11721 ==

== ENCOUNTER → 2024-08-31 10:18 | Outpatient (BNVA) | payer MEDICARE, SELFPAY | PROVIDERS: PCP Family Medicine; Visit Provider Nurse Practitioner Family | DX: L82.1 Other seborrheic keratosis (principal); D18.01 Hemangioma of skin and subcutaneous tissue; L81.4 Other melanin hyperpigmentation; L57.8 Other skin changes due to chronic exposure to nonionizing radiation; Z85.828 Personal history of other malignant neoplasm of skin | CPT/HCPCS: 17000; 99213 ==

== ENCOUNTER → 2024-09-28 13:20 | Outpatient (BNVA) | payer MEDICARE, SELFPAY | PROVIDERS: PCP Family Medicine; Visit Provider Podiatrist Foot & Ankle Surgery | DX: I73.9 Peripheral vascular disease, unspecified (principal); L60.3 Nail dystrophy | CPT/HCPCS: 11721 ==

== ENCOUNTER → 2024-11-07 09:21 | Outpatient (BNVA) | payer MEDICARE, SELFPAY | PROVIDERS: PCP Family Medicine; Visit Provider Nurse Practitioner Family | DX: I10 Essential (primary) hypertension (principal); I49.9 Cardiac arrhythmia, unspecified; R00.1 Bradycardia, unspecified; I49.3 Ventricular premature depolarization | CPT/HCPCS: 99214 ==

== ENCOUNTER → 2024-12-28 12:27 | Outpatient (BNVA) | payer MEDICARE, SELFPAY | PROVIDERS: PCP Family Medicine; Visit Provider Podiatrist Foot & Ankle Surgery | DX: I73.9 Peripheral vascular disease, unspecified (principal); L60.3 Nail dystrophy | CPT/HCPCS: 11721 ==

== ENCOUNTER → 2025-01-23 14:58 | Outpatient (BNVA) | payer MEDICARE, SELFPAY | PROVIDERS: PCP Family Medicine; Visit Provider Nurse Practitioner Family | DX: L21.8 Other seborrheic dermatitis (principal); L82.1 Other seborrheic keratosis; D18.01 Hemangioma of skin and subcutaneous tissue; L81.4 Other melanin hyperpigmentation; L57.8 Other skin changes due to chronic exposure to nonionizing radiation; X32.XXXA Exposure to sunlight, initial encounter; Z08 Encounter for follow-up examination after completed treatment for malignant neoplasm; Z85.828 Personal history of other malignant neoplasm of skin | CPT/HCPCS: 99214 ==

== ENCOUNTER → 2025-03-01 12:54 | Outpatient (BNVA) | payer MEDICARE, SELFPAY | PROVIDERS: PCP Family Medicine; Visit Provider Podiatrist Foot & Ankle Surgery | DX: I73.9 Peripheral vascular disease, unspecified (principal); L60.3 Nail dystrophy | CPT/HCPCS: 11721 ==

== ENCOUNTER → 2025-05-09 13:37 | Outpatient (BNVA) | payer MEDICARE, SELFPAY | PROVIDERS: PCP Family Medicine; Visit Provider Podiatrist Foot & Ankle Surgery | DX: E11.8 Type 2 diabetes mellitus with unspecified complications (principal); L60.3 Nail dystrophy; I73.9 Peripheral vascular disease, unspecified | CPT/HCPCS: 11721 ==

== ENCOUNTER → 2025-05-23 10:43 | Outpatient (BNVA) | payer MEDICARE, SELFPAY | PROVIDERS: PCP Family Medicine; Visit Provider Internal Medicine Cardiovascular Disease | DX: I49.8 Other specified cardiac arrhythmias (principal); I42.9 Cardiomyopathy, unspecified; R06.02 Shortness of breath; I10 Essential (primary) hypertension | CPT/HCPCS: 99214 ==

== ENCOUNTER 2025-06-22 12:05 | Outpatient (CLI) | payer MEDICARE, SELFPAY ==
--- NOTE | 2025-06-22 12:45 | USCV_ITS ---
Aaron Negron Age: 85 Gender: M : 1940 Exam Date: 06/22/2025 12:50 Ordering Phys: Indira Mckee MD ([email or web address]) Technologist: Exam Location: [facility] – [place] Indication: cp sob BP: 133 / 73 HR: 54 Rhythm: Sinus Technical Quality: Adequate MEASUREMENTS (Male / Female) Normal Values 2D ECHO LV Diastolic Diameter PLAX 4.0 cm 4.2 - 5.9 / 3.9 - 5.3 cm IVS Diastolic Thickness 1.5 cm 0.6 - 1.0 / 0.6 - 0.9 cm IVS Systolic Thickness 1.5 cm LVPW Diastolic Thickness 1.7 cm 0.6 - 1.0 / 0.6 - 0.9 cm LVPW Systolic Thickness 1.8 cm LVOT Diameter 2.0 cm LV Ejection Fraction 2D Teich 70.3 % LV Ejection Fraction MOD 4C 65.7 % LV Ejection Fraction MOD 2C 70.6 % LV Ejection Fraction 2C AL 71.6 % LA Diameter 3.7 cm RA Systolic Volume 4C AL 51.3 ml RA Systolic Volume 4C MOD 49.0 ml LA Sys Volume AL 48.6 cm cubed LA Sys Volume Index AL 22.2 cm cubed/m squared Aorta at Sinotubular Diameter 2.9 cm IVC Diameter 2.2 cm M-MODE LA Ao Ratio MM 1.2 AV Cusp Separation MM 2.5 cm DOPPLER AV Peak Velocity 155.0 cm/s LVOT Peak Velocity 98.0 cm/s AV Area Cont Eq vti 2.2 cm squared AV Area Cont Eq pk 2.1 cm squared MV Peak Velocity 151.0 cm/s MV Area PHT 3.2 cm squared Mitral E to A Ratio 0.8 TV Peak Velocity 185.5 cm/s TR Peak Velocity 287.0 cm/s TR Peak Gradient 32.9 mmHg TV Peak E Velocity 117.0 cm/s PV Peak Velocity 111.0 cm/s FINDINGS Left Ventricle Normal LV size with a slightly diminished ejection fraction of 45 to 50% (visual). Mild hypokinesia of the LV apex and basal inferior wall segments.mild left ventricular hypertrophy. Grade I/IV diastolic dysfunction (abnormal relaxation filling pattern), normal to mildly elevated filling pressures. Right Ventricle Normal right ventricular size and systolic function. Right Atrium Normal right atrial size. Left Atrium Normal left atrial size. IA Septum Normal appearance of the interatrial septum. Mitral Valve Moderate mitral annular calcification. Trace mitral valve regurgitation. Aortic Valve Thickened aortic valve. Mild aortic valve calcification. Tricuspid Valve Trace tricuspid valve regurgitation. Estimated pulmonary artery peak systolic pressure 36 mmHg Pulmonic Valve Pulmonic valve not well visualized. Pericardium No pericardial effusion. Aorta Normal aortic annulus size. IVC Normal inferior vena cava. CONCLUSIONS Normal LV size with a slightly diminished ejection fraction of 45 to 50% (visual). Mild hypokinesia of the LV apex and basal inferior wall segments.mild left ventricular hypertrophy. Grade I/IV diastolic dysfunction (abnormal relaxation filling pattern), normal to mildly elevated filling pressures. Moderate mitral annular calcification. Trace mitral valve regurgitation. Thickened aortic valve. Mild aortic valve calcification. Trace tricuspid valve regurgitation. Estimated pulmonary artery peak systolic pressure 36 mmHg. There is no pericardial effusion. There are no intracardiac masses. Compared to the study from 04/12/2024, there is slight improvement in the LV ejection fraction Dr Indira Mckee MD [facility] (Electronically Signed) Final Date: 24 June 2025 19:40 S
== END 2025-06-22 12:06 | disposition home or self-care (01) ==
LOC: RAD 12:10
PROVIDERS: PCP Family Medicine; Visit Provider Internal Medicine Cardiovascular Disease
DX: R06.09 Other forms of dyspnea (principal); I51.89 Other ill-defined heart diseases; I34.81 Nonrheumatic mitral (valve) annulus calcification; I34.0 Nonrheumatic mitral (valve) insufficiency; I35.1 Nonrheumatic aortic (valve) insufficiency; I70.0 Atherosclerosis of aorta; I35.8 Other nonrheumatic aortic valve disorders; I36.1 Nonrheumatic tricuspid (valve) insufficiency; I27.20 Pulmonary hypertension, unspecified
CPT/HCPCS: 93306

== ENCOUNTER → 2025-07-25 13:05 | Outpatient (BNVA) | payer MEDICARE, SELFPAY | PROVIDERS: PCP Family Medicine; Visit Provider Podiatrist Foot & Ankle Surgery | DX: I73.9 Peripheral vascular disease, unspecified (principal); L60.3 Nail dystrophy | CPT/HCPCS: 11721 ==

== ENCOUNTER → 2025-08-30 09:10 | Outpatient (BNVA) | payer MEDICARE, SELFPAY | PROVIDERS: PCP Family Medicine; Visit Provider Dermatology | DX: L71.9 Rosacea, unspecified (principal); L57.8 Other skin changes due to chronic exposure to nonionizing radiation; D18.01 Hemangioma of skin and subcutaneous tissue; D48.5 Neoplasm of uncertain behavior of skin; L57.0 Actinic keratosis | CPT/HCPCS: 11102; 17000; 99213 ==